=== PATIENT | male | born 1955 | race Caucasian/White ===

== ENCOUNTER 2021-08-09 05:58 | Inpatient (IN) | payer OTHER ==
[~2021-08-09] VITALS: Ht 172.7 cm; Wt 70.3 kg
--- NOTE | 2021-08-09 06:02 | NUR ---
PT AAOX4. BIBRA FROM HOME C/O RAPID HEART RATE, HEADACHE, AND NECK PAIN X1HR EDGE BASTER. PLACED IN BED 9 ON DOG DAY CARE ATTENDANT AND PULSE OX. ER MD AT BEDSIDE FOR EVAL. AWAITING ORDERS.
[2021-08-09] MEDS ORDERED: DILTIAZEM HCL 50 MG IV ONE (06:09)
[2021-08-09] MEDS ORDERED: METOCLOPRAMIDE HCL 10 MG/2 ML VIAL ONE (06:21)
[2021-08-09] MEDS ORDERED: ACETAMINOPHEN ES 500 MG TABLET ONE (06:22)
[2021-08-09 06:28] LABS: BASOPHILS # (AUTO) 0.1 K/uL (0.0-0.2); BASOPHILS % (AUTO) 0.8 % (0.0-2.0); EOSINOPHILS % (AUTO) 2.4 % (0.0-6.0); HEMATOCRIT 44 % (39-51); HEMOGLOBIN 15.1 g/dL (13.5-17.5); LYMPHOCYTES # (AUTO) 3.3 K/uL (0.8-4.8); LYMPHOCYTES % (AUTO) 31.5 % (20.0-44.0); MEAN CORPUSCULAR HGB CONC 34 g/dl (31.0-36.0); MEAN CORPUSCULAR VOLUME 91 fL (80-96); MONOCYTES # (AUTO) 1.3 K/uL (0.1-1.30); MONOCYTES % (AUTO) 12.4 % (2.0-12.0); NEUTROPHILS # (AUTO) 5.5 K/uL (1.8-8.9); NEUTROPHILS % (AUTO) 52.9 % (43.0-81.0); PLATELET COUNT (AUTO) 294 K/uL (150-450); RED BLOOD CELL COUNT(AUTO) 4.84 MIL/uL (4.5-6.0); WHITE BLOOD COUNT (AUTO) 10.4 K/uL (4.3-11.0)
[2021-08-09] MEDS ORDERED: DILTIAZEM HCL CD 120 MG ONE (06:29)
[2021-08-09] MEDS ORDERED: METOCLOPRAMIDE HCL 10 MG/2 ML VIAL IV ONE (06:30)
[2021-08-09] MEDS ORDERED: IV NS 0.9% 1,000 ML BAG IV ONE (06:30)
[2021-08-09] MEDS ORDERED: DILTIAZEM HCL CD 120 MG PO ONE (06:30)
[2021-08-09] MEDS ORDERED: DILTIAZEM HCL 50 MG IV IV ONE (06:30)
[2021-08-09] MEDS ORDERED: ACETAMINOPHEN ES 500 MG TABLET PO ONE (06:30)
[2021-08-09 06:41] LABS: CARBON DIOXIDE 27 mmol/L (21-32); CHLORIDE 104 mmol/L (98-107); CREATININE 0.7 mg/dL (0.6-1.3); GLUCOSE 166 mg/dL (74-106); POTASSIUM 3.8 mmol/L (3.5-5.1); SODIUM SERUM 142 mmol/L (136-145); UREA NITROGEN, BLOOD 15 mg/dL (7-18)
[2021-08-09] MEDS ORDERED: IOHEXOL-350 100 ML VIAL IV ONE (06:59)
[2021-08-09] MEDS ORDERED: CT SWABBABLE VALVE TRANS SET 1 EA INFUS.SET MC ONE (06:59)
[2021-08-09] MEDS ORDERED: IV NS 0.9% 250 ML IV ONE (06:59)
--- NOTE | 2021-08-09 07:17 | NUR ---
CASIMIROID SWABBED, SENT TO LAB.
--- NOTE | 2021-08-09 07:29 | NUR ---
ASSESSED PT ON BED AWAKE AND ALERT, NOT IN RESPIRATORY DISTRESS, V/S STABLE, KEPT RESTED AND COMFORTABLE. WILL CONTINUE TO MONITOR.
[2021-08-09] MEDS ORDERED: LEVE500T9 PO (08:48)
--- NOTE | 2021-08-09 09:11 | NUR ---
[facility] CALLED DELIVERY ASSISTANT PAGED.
--- NOTE | 2021-08-09 10:42 | NUR ---
PT AAOX4, VSS. RR EVEN & UNLABORED. DENIES CP, SOB, DIZZINESS, N/V AT THIS TIME. ON TELE, NSR. WILL CONT TO MONITOR.
[2021-08-09] MEDS ORDERED: MAG HYDROX/AL HYDROX/SIMETH 30 ML UDC PO PRN (11:00)
[2021-08-09] MEDS ORDERED: ACETAMINOPHEN 325 MG TABLET PO PRN (11:00)
[2021-08-09] MEDS ORDERED: ONDANSETRON HCL/PF 4 MG/2 ML VIAL IVP PRN (11:00)
[2021-08-09] MEDS ORDERED: ZOLPIDEM TARTRATE 5 MG TABLET PO PRN (11:00)
--- NOTE | 2021-08-09 11:18 | NUR ---
GOT BED 323-2
--- NOTE | 2021-08-09 11:30 | NUR ---
REPORT GIVEN TO ALEJANDRO FERRARI FOR JARED
--- NOTE | 2021-08-09 12:10 | NUR ---
RN NOTES PATIENT TRANSFERRED TO UNIT AT ROOM 323-2 VIA [facility], ACCOMPANIED BY 1 ER NURSE.
[2021-08-09 12:15] VITALS: BP 132/57
--- NOTE | 2021-08-09 12:20 | NUR ---
RN NOTES ADMITTED THIS 66-YEAR-OLD MALE FROM HOME W/ CHIEF COMPLAINT OF FRONTAL HEADACHE, ADMITTING DIAGNOSIS OF A-FIB W/ RVR, STATUS POST DILTIAZEM DRIP FROM THE ER, W/ CURRENT TELE READING OF A-FIB RATE CONTROLLED; ADMITTED UNDER THE CARE AND SERVICE OF YAIR HORN NP, W/ ADMITTING ORDERS NOTED. PATIENT IS A/O X4, FARSI-SPEAKING BUT ABLE TO COMMUNICATE IN COOK ISLANDER; ABLE TO MAKE NEEDS KNOWN TO STAFF. BREATHING EVEN AND UNLABORED, TOLERATING ROOM AIR, NO RESPIRATORY DISTRESS NOTED. IV LINES NOTED ON LAC AND RFA, BOTH #18 GAUGE. PATIENT IS AMBULATORY W/ STEADY GAIT. SEIZURE AND SAFETY PRECAUTIONS IN PLACE. ORIENTED PATIENT TO ROOM AND USE OF CALL LIGHT BUTTON FOR STAFF ASSISTANCE. WILL CONTINUE TO MONITOR.
[2021-08-09] MEDS: ENOXAPARIN SODIUM 80 MG/0.8 ML DISP.SYRIN SQ SCH ×2 (13:13→21:45)
[2021-08-09 16:00] VITALS: BP 132/68
[2021-08-09] MEDS: LEVETIRACETAM (250 MG) 250 MG TABLET PO SCH (16:20)
--- NOTE | 2021-08-09 16:50 | NUR ---
RN NOTES PM MEDS GIVEN; INFORMED PATIENT THAT DR. JACOBSON WILL BE SEEING HIM FOR CARDIO CONSULT.
--- NOTE | 2021-08-09 18:25 | NUR ---
RN NOTES CHEMISTRY TEACHER AT BEDSIDE FOR ECHOCARDIOGRAM.
--- NOTE | 2021-08-09 18:51 | NUR ---
RN NOTES PATIENT CURRENTLY RESTING IN BED, AT BEDSIDE; AWAKE AND VERBALLY RESPONSIVE, NOT IN ACUTE DISTRESS. BREATHING EVEN AND UNLABORED, TOLERATING ROOM AIR. CONTINUES ON TELE MONITORING W/ READING OF CONTROLLED A-FIB, HR IN THE 80'S-90'S, NO CARDIAC DISTRESS NOTED. IV LINES INTACT AND PATENT. SAFETY MEASURES MAINTAINED. WILL ENDORSE TO ASSIGNER RN FOR JARED.
[2021-08-09 19:40] VITALS: BP 113/57
--- NOTE | 2021-08-09 19:44 | NUR ---
IN BED AT THE BEDSIDE WAITING FOR THE VISIT OF MD JACOBSON CARDIO TO SEE HIM AFIB ON THE MONITOR HE 80 CONTROLLED ALERT AND ORIENTATEDX4
[2021-08-09 20:00] VITALS: BP 113/57
[2021-08-10] VITALS: BP 116/59
[2021-08-10 04:00] VITALS: BP 127/65
[2021-08-10 06:32] LABS: CALCIUM, SERUM 8.6 mg/dL (8.5-10.1); CREATININE 0.8 mg/dL (0.6-1.3); MAGNESIUM 2.1 mg/dL (1.8-2.4); POTASSIUM 4.1 mmol/L (3.5-5.1)
[2021-08-10 07:02] LABS: BASOPHILS % (AUTO) 0.5 % (0.0-2.0); EOSINOPHILS % (AUTO) 1.5 % (0.0-6.0); HEMATOCRIT 44 % (39-51); HEMOGLOBIN 14.7 g/dL (13.5-17.5); LYMPHOCYTES # (AUTO) 2.5 K/uL (0.8-4.8); LYMPHOCYTES % (AUTO) 23.2 % (20.0-44.0); MEAN CORPUSCULAR HGB CONC 34 g/dl (31.0-36.0); MEAN CORPUSCULAR VOLUME 92 fL (80-96); MONOCYTES # (AUTO) 1.1 K/uL (0.1-1.30); NEUTROPHILS # (AUTO) 6.9 K/uL (1.8-8.9); NEUTROPHILS % (AUTO) 64.8 % (43.0-81.0); PLATELET COUNT (AUTO) 276 K/uL (150-450); RED BLOOD CELL COUNT(AUTO) 4.77 MIL/uL (4.5-6.0); WHITE BLOOD COUNT (AUTO) 10.7 K/uL (4.3-11.0)
[2021-08-10] MEDS ORDERED: PANTOPRAZOLE 40 MG TABLET.DR PO SCH (07:30)
--- NOTE | 2021-08-10 07:33 | NUR ---
[facility]ARF LABORER CLOSING NOTES PATIENT CURRENTLY RESTING IN BED AWAKE. PATIENT'S A/OX4. PATIENT'S ON ROOM AIR WITH NO RESPIRATORY DISTRESS NOTED. PATIENT'S CONNECTED TO A TELE MONITOR WITH NO CARDIAC DISTRESS NOTED. SAFETY MEASURES IN PLACE: BED LOCKED, SIDE RAILS UPX2, AND CALL LIGHT WITHIN REACH OF THE PATIENT. ENDORSED CARE TO THE DAY SHIFT NURSE.
--- NOTE | 2021-08-10 07:45 | NUR ---
POLITICAL WORKER OPENING NOTES RECEIVED PATIENT SITTING IN BED, AWAKE. PATIENT'S A/OX4. PATIENT'S ON ROOM AIR WITH NO RESPIRATORY DISTRESS NOTED. PATIENT'S CONNECTED TO A TELE MONITOR, SHOWING SR HR AT 70'S, WITH NO CARDIAC DISTRESS NOTED. SAFETY MEASURES IN PLACE: BED LOCKED, SIDE RAILS UPX2, AND CALL LIGHT WITHIN REACH OF THE PATIENT, SIDE RAILS UP X 2. WILL MONITOR PATIENT ACCORDINGLY.
[2021-08-10 08:00] VITALS: BP 140/60
[2021-08-10] MEDS: LEVETIRACETAM (250 MG) 250 MG TABLET PO SCH (08:16)
[2021-08-10] MEDS: ENOXAPARIN SODIUM 80 MG/0.8 ML DISP.SYRIN SQ SCH (08:17)
[2021-08-10] MEDS ORDERED: METOPROLOL SUCCINATE 50 MG TAB.SR.24H PO SCH (09:00)
[2021-08-10] MEDS ORDERED: NICOTINE PATCH (7MG) 7 MG PATCH.TD24 TD SCH (09:00)
[2021-08-10 12:00] VITALS: BP 128/59
--- NOTE | 2021-08-10 12:41 | NUR ---
MILITARY TECHNICIANADMINISTRATION DEAN NOTES DISCHARGED PATIENT IN STABLE CONDITION. VITAL SIGNS WITHIN NORMAL LIMITS. HEALTH EDUCATION AND HOME MEDICATIONS INSTRUCTIONS PROVIDED. PATIENT VERBALIZED UNDERSTANDING. PRESCRIPTION GIVEN TO PATIENT. BELONGINGS SIGNED AND ACCOUNTED FOR. IV ACCESS REMOVED, COVERED WITH GAUZE, NO BLEEDING NOTED. ARMBAND REMOVED. INSTRUCTED TO DO FOLLOW UP APPOINTMENT WITH PRIMARY CARE PHYSICIAN IN 1 WEEK. PATIENT VERBALIZED UNDERSTANDING OF INSTRUCTIONS GIVEN. PATIENT LEFT UNIT AT 1240 IN STABLE CONDITION. MAD AND CHARGE NURSE AWARE OF DISCHARGE.
[2021-08-10] MEDS ORDERED: APIXABAN 5 MG TABLET PO SCH (17:00)
== END 2021-08-10 13:26 | disposition home or self-care (01) | DRG 310 ==
LOC: ER 06:01 → TRANSITION 10:42 → TELE 11:18
PROVIDERS: ADMIT Nurse Practitioner Family; ATTEND Nurse Practitioner Family
DX: I48.91 Unspecified atrial fibrillation (principal); R56.9 Unspecified convulsions; R73.9 Hyperglycemia, unspecified; Z20.822 Contact with and (suspected) exposure to COVID-19; Z79.899 Other long term (current) drug therapy; F17.200 Nicotine dependence, unspecified, uncomplicated; R51.9 Headache, unspecified; I70.0 Atherosclerosis of aorta; I34.0 Nonrheumatic mitral (valve) insufficiency
CPT/HCPCS: 36415; 70496-TC; 70498-TC; 71045-TC; 80048-TC; 80061-TC; 83735-TC; 83880; 84484-TC; 85025-TC; 87081-TC; 93307-TC; C9803; G0378; J1650; J2765; J3490; J7030; J7050; Q9967